=== PATIENT | female | born 1955 | race Two or more races ===

== ENCOUNTER 2017-03-06 14:29 | Emergency (ER) | payer SELFPAY ==
[~2017-03-06] VITALS: Ht 160 cm; Wt 65.8 kg
[2017-03-06 15:18] VITALS: BP 161/99
[2017-03-06] MEDS ORDERED: IBUPROFEN 400 MG TABLET PO ONE (17:30)
[2017-03-06] MEDS ORDERED: IBUPROFEN 400 MG TABLET ONE (17:35)
== END 2017-03-06 17:38 | disposition home or self-care (01) ==
LOC: ER 14:33
DX: H66.91 Otitis media, unspecified, right ear (principal)
CPT/HCPCS: 99284; A4606; Z7610